=== PATIENT | male | born 1945 | race Hispanic/Latino ===

== ENCOUNTER 2021-05-19 12:36 | Inpatient (IN) | payer OTHER, MEDICARE ==
[~2021-05-19] VITALS: Ht 162.6 cm; Wt 77.1 kg
[2021-05-19 13:19] LABS: BASOPHILS % (AUTO) 0.2 % (0.0-5.0); EOSINOPHILS % (AUTO) 0.7 % (0.0-8.0); HEMATOCRIT 40.1 % (42-54); LYMPHOCYTES % (AUTO) 5.9 % (21.0-51.0); MEAN CORPUSCULAR HEMOGLOBIN 28.7 pg (27.0-33.0); MEAN CORPUSCULAR HGB CONC 32.7 g/dL (32.0-36.0); MEAN CORPUSCULAR VOLUME 87.9 fL (79-99); MONOCYTES % (AUTO) 14.7 % (3.0-13.0); NEUTROPHILS % (AUTO) 77.8 % (40.0-77.0); PLATELET COUNT (AUTO) 287 K/uL (130-400); RED BLOOD CELL COUNT(AUTO) 4.56 MIL/uL (4.50-6.20); RED CELL DISTRIBUTION WIDTH 14.4 % (11.0-15.5); WHITE BLOOD COUNT (AUTO) 16.4 K/uL (4.8-10.8)
[2021-05-19 13:30] LABS: CREATININE 1.2 mg/dL (0.5-1.5); POTASSIUM 3.9 mmol/L (3.5-5.1)
[2021-05-19 13:35] LABS: ALBUMIN 2.7 g/dL (3.5-5.0); BILIRUBIN,TOTAL 0.8 mg/dL (0.2-1.0)
[2021-05-19] MEDS ORDERED: ACETAMINOPHEN 500 MG TABLET ONE (14:52)
[2021-05-19 15:05] LABS: APPEARANCE,URINE Clear (CLEAR); BILIRUBIN,URINE Negative (NEGATIVE); COLOR,URINE Yellow (YELLOW); GLUCOSE, URINE (UA) Negative (NEGATIVE); KETONES,URINE Trace mg/dL (NEGATIVE); LEUKOCYTE ESTERASE ,URINE Small (NEGATIVE); NITRATE,URINE Negative (NEGATIVE); OCCULT BLOOD,URINE Small (NEGATIVE); PH,URINE 6.5 (5.0-8.0); PROTEIN,URINE POS 2+ mg/dL (NEGATIVE)
[2021-05-19 15:24] LABS: BACTERIA,URINE Few /HPF (None Seen); MUCUS,URINE Rare LPF (None Seen); SQUAMOUS EPITHELIAL CELL,UR Few /HPF (0-2)
[2021-05-19 15:48] LABS: INR 1.16 (0.85-1.15); PROTHROMBIN TIME 12.5 SEC (9.6-11.6)
[2021-05-19 15:50] LABS: PARTIAL THROMBOPLASTIN TIME 30.9 SEC (26.3-35.5)
[2021-05-19 16:14] VITALS: BP 135/74
[2021-05-19 18:31] VITALS: BP 145/74
[2021-05-19] MEDS ORDERED: CEFTRIAXONE 1G VIAL IVP ONE (19:00)
[2021-05-20] VITALS (7 sets, daily range): BP systolic 135–154; BP diastolic 70–89
[2021-05-20] MEDS ORDERED: ONDANSETRON 4MG INJ IV PRN
[2021-05-20] MEDS ORDERED: 0.9% NACL 250ML IVPB SCH
[2021-05-20] MEDS ORDERED: ACETAMINOPHEN 325 MG TAB PO PRN ×2
[2021-05-20] MEDS ORDERED: GUAIFENESIN-DM 200/20 MG 10 ML PO PRN
[2021-05-20] MEDS ORDERED: LACTULOSE 20 GM/30 ML UDCUP PO PRN
[2021-05-20] MEDS ORDERED: ZOLPIDEM TARTRATE 5 MG TAB PO PRN
[2021-05-20] MEDS ORDERED: MORPHINE 2 MG SYG IV PRN
[2021-05-20] MEDS ORDERED: MAG/ALUM/SIMETH 30 ML UDCUP PO PRN
[2021-05-20] MEDS ORDERED: NITROGLYCERIN 0.4 MG SL TAB SL PRN
[2021-05-20] MEDS ORDERED: LABETALOL 20MG VIAL IV PRN
[2021-05-20] MEDS ORDERED: DOXYCYCLINE 100MG IVPB (VIAL) IVPB SCH (00:30)
[2021-05-20] MEDS ORDERED: SULFAMETHOX-TMP DS 800/160 TAB PO SCH (00:30)
[2021-05-20] MEDS ORDERED: DOXYCYCLINE 100MG+NS 250ML 250 ML IV SCH (01:00)
[2021-05-20 08:39] LABS: MEAN CORPUSCULAR HEMOGLOBIN 28.9 pg (27.0-33.0); MEAN CORPUSCULAR HGB CONC 33.2 g/dL (32.0-36.0); MEAN CORPUSCULAR VOLUME 86.9 fL (79-99); RED BLOOD CELL COUNT(AUTO) 4.26 MIL/uL (4.50-6.20); RED CELL DISTRIBUTION WIDTH 14.4 % (11.0-15.5); WHITE BLOOD COUNT (AUTO) 17.2 K/uL (4.8-10.8)
[2021-05-20 08:46] LABS: CREATININE 1.1 mg/dL (0.5-1.5); POTASSIUM 3.7 mmol/L (3.5-5.1)
[2021-05-20 08:51] LABS: ALBUMIN 2.3 g/dL (3.5-5.0); BILIRUBIN,TOTAL 0.6 mg/dL (0.2-1.0)
[2021-05-20] MEDS ORDERED: VANCOMYCIN 1G VIAL IVPB ONE (09:00)
[2021-05-20] MEDS ORDERED: VANCOMYCIN PROTOCOL PER PHARMACY IV SCH (09:00)
[2021-05-20 09:05] LABS: TOTAL PROTEIN, SERUM 6.6 g/dL (6.0-8.3)
[2021-05-20] MEDS ORDERED: VANCOMYCIN 1.25GM/NS 250ML IVPB SCH ×2 (09:30)
[2021-05-20] MEDS ORDERED: LOSARTAN 50 MG TABLET ONE (09:55)
[2021-05-20] MEDS: LOSARTAN 100 MG TABLET PO SCH (10:05)
[2021-05-20] MEDS: HYDROCHLOROTHIAZIDE 25 MG TABLET PO SCH (10:05)
[2021-05-20] MEDS: ASPIRIN 81 MG EC TAB PO SCH (10:05)
[2021-05-20] MEDS: FAMOTIDINE 20MG VIAL IV SCH (10:05)
[2021-05-20] MEDS: ENOXAPARIN SODIUM 30 MG/0.3 ML SQ SCH (10:06)
[2021-05-20] MEDS: MEROPENEM 1 GM VIAL IVP SCH ×2 (10:12→16:45)
[2021-05-20] MEDS: ATORVASTATIN 40 MG TABLET PO SCH (21:02)
[2021-05-21] VITALS (8 sets, daily range): BP systolic 127–143; BP diastolic 77–85
[2021-05-21] MEDS: MEROPENEM 1 GM VIAL IVP SCH ×3 (01:11→17:22)
[2021-05-21 06:27] LABS: BASOPHILS % (AUTO) 0.2 % (0.0-5.0); EOSINOPHILS % (AUTO) 0.4 % (0.0-8.0); LYMPHOCYTES % (AUTO) 5.6 % (21.0-51.0); MEAN CORPUSCULAR HEMOGLOBIN 28.6 pg (27.0-33.0); MEAN CORPUSCULAR HGB CONC 33.6 g/dL (32.0-36.0); MEAN CORPUSCULAR VOLUME 85.1 fL (79-99); MONOCYTES % (AUTO) 12.8 % (3.0-13.0); NEUTROPHILS % (AUTO) 79.2 % (40.0-77.0); PLATELET COUNT (AUTO) 343 K/uL (130-400); RED BLOOD CELL COUNT(AUTO) 4.23 MIL/uL (4.50-6.20); RED CELL DISTRIBUTION WIDTH 14.1 % (11.0-15.5); WHITE BLOOD COUNT (AUTO) 13.6 K/uL (4.8-10.8)
[2021-05-21 06:39] LABS: CREATININE 1.2 mg/dL (0.5-1.5); POTASSIUM 3.3 mmol/L (3.5-5.1)
[2021-05-21] MEDS ORDERED: LOSARTAN 50 MG TABLET ONE (08:20)
[2021-05-21] MEDS: FAMOTIDINE 20MG VIAL IV SCH (08:44)
[2021-05-21] MEDS: LOSARTAN 100 MG TABLET PO SCH (08:44)
[2021-05-21] MEDS: ASPIRIN 81 MG EC TAB PO SCH (08:44)
[2021-05-21] MEDS: HYDROCHLOROTHIAZIDE 25 MG TABLET PO SCH (08:44)
[2021-05-21] MEDS: ENOXAPARIN SODIUM 30 MG/0.3 ML SQ SCH (08:45)
[2021-05-21] MEDS: 0.9%NACL 100ML 100 ML IV SCH ×2 (10:04→21:01)
[2021-05-21] MEDS: VANCOMYCIN 500MG+NS 100ML IVPB IV SCH ×2 (10:04→21:00)
[2021-05-21] MEDS ORDERED: LIDOCAINE HCL-MPF 1% 2ML VIAL IV PRN ×2 (12:00)
[2021-05-21] MEDS ORDERED: POTASSIUM CHLORIDE 20MEQ/100ML 100 ML IV PRN ×2 (12:00)
[2021-05-21] MEDS ORDERED: KCL 20 MEQ ERTAB PO PRN (12:00)
[2021-05-21] MEDS ORDERED: POTASSIUM CHLORIDE 10% ELIXIR 20 MEQ/15 ML UDCUP PO PRN (12:00)
[2021-05-21] MEDS ORDERED: ONDANSETRON 4MG INJ IVP PRN (12:00)
[2021-05-21] MEDS ORDERED: 0.9%NACL 50ML 50 ML IV ONE (17:20)
[2021-05-21] MEDS: ATORVASTATIN 40 MG TABLET PO SCH (21:01)
[2021-05-22 01:26] VITALS: BP 119/83
[2021-05-22] MEDS: MEROPENEM 1 GM VIAL IVP SCH ×2 (02:14→11:15)
[2021-05-22 05:04] VITALS: BP 123/72
[2021-05-22 06:02] LABS: HEMATOCRIT 40.7 % (42-54); MEAN CORPUSCULAR HEMOGLOBIN 28.4 pg (27.0-33.0); MEAN CORPUSCULAR HGB CONC 33.2 g/dL (32.0-36.0); MEAN CORPUSCULAR VOLUME 85.7 fL (79-99); RED BLOOD CELL COUNT(AUTO) 4.75 MIL/uL (4.50-6.20); RED CELL DISTRIBUTION WIDTH 13.9 % (11.0-15.5); WHITE BLOOD COUNT (AUTO) 10.4 K/uL (4.8-10.8)
[2021-05-22 06:11] LABS: CREATININE 1.2 mg/dL (0.5-1.5); POTASSIUM 4.3 mmol/L (3.5-5.1)
[2021-05-22 07:55] VITALS: BP 134/74
[2021-05-22 08:15] VITALS: BP 136/91
[2021-05-22] MEDS: ASPIRIN 81 MG EC TAB PO SCH (11:15)
[2021-05-22] MEDS: FAMOTIDINE 20MG VIAL IV SCH (11:15)
[2021-05-22] MEDS: LOSARTAN 100 MG TABLET PO SCH (11:15)
[2021-05-22] MEDS: VANCOMYCIN 500MG+NS 100ML IVPB IV SCH (11:16)
[2021-05-22] MEDS: ENOXAPARIN SODIUM 30 MG/0.3 ML SQ SCH (11:18)
[2021-05-22 12:00] VITALS: BP 118/78
[2021-05-22] MEDS ORDERED: AMOX-429 PO (14:55)
[2021-05-22 16:00] VITALS: BP 128/84
== END 2021-05-22 19:20 | disposition home or self-care (01) | DRG 728 ==
LOC: EDH 12:36 → EDHIP 19:16 → OBSVTOIN 19:16 → 3BH 05-22 08:37
PROVIDERS: ADMIT Internal Medicine Critical Care Medicine; ATTEND Internal Medicine Critical Care Medicine
DX: N45.3 Epididymo-orchitis (principal); N39.0 Urinary tract infection, site not specified; E78.00 Pure hypercholesterolemia, unspecified; I11.9 Hypertensive heart disease without heart failure; N43.3 Hydrocele, unspecified; K80.20 Calculus of gallbladder without cholecystitis without obstruction; K57.30 Diverticulosis of large intestine without perforation or abscess without bleeding; N40.0 Benign prostatic hyperplasia without lower urinary tract symptoms; K44.9 Diaphragmatic hernia without obstruction or gangrene; K29.70 Gastritis, unspecified, without bleeding; K40.20 Bilateral inguinal hernia, without obstruction or gangrene, not specified as recurrent; Z20.822 Contact with and (suspected) exposure to COVID-19; N49.2 Inflammatory disorders of scrotum
CPT/HCPCS: 36415; 71045; 74176; 76870; 80048; 80053; 80202; 81001; 82550; 83605; 83690; 84484; 85025; 85027; 85610; 85730; 87040; 87635; 87804; 93005; C9803; G0378; J0696; J1650; J2185; J2405; J3370; J3490; J7050

== ENCOUNTER 2021-08-31 12:29 | Inpatient (IN) | payer OTHER, MEDICARE ==
[~2021-08-31] VITALS: Ht 162.6 cm; Wt 72.3 kg
[~2021-08-31 12:29] MED LIST: AMOX-429 PO
[2021-08-31 15:04] VITALS: BP 148/85
[2021-08-31 16:44] LABS: BASOPHILS % (AUTO) 0.2 % (0.0-5.0); EOSINOPHILS % (AUTO) 0.2 % (0.0-8.0); HEMATOCRIT 39.4 % (42-54); MEAN CORPUSCULAR HEMOGLOBIN 27.7 pg (27.0-33.0); MEAN CORPUSCULAR HGB CONC 31.7 g/dL (32.0-36.0); MEAN CORPUSCULAR VOLUME 87.2 fL (79-99); MONOCYTES % (AUTO) 4.9 % (3.0-13.0); NEUTROPHILS % (AUTO) 92.2 % (40.0-77.0); PLATELET COUNT (AUTO) 297 K/uL (130-400); RED BLOOD CELL COUNT(AUTO) 4.52 MIL/uL (4.50-6.20); RED CELL DISTRIBUTION WIDTH 14.3 % (11.0-15.5); WHITE BLOOD COUNT (AUTO) 12.8 K/uL (4.8-10.8)
[2021-08-31] MEDS: LACTATED RINGERS 1000ML 1,000 ML IV SCH (16:46)
[2021-08-31] MEDS: ZOSYN 3.375GM +NS 50ML IV SCH (16:50)
[2021-08-31 16:59] LABS: INR 1.3 (0.85-1.15); PROTHROMBIN TIME 13.8 SEC (9.6-11.6)
[2021-08-31] MEDS ORDERED: ACETAMINOPHEN 325 MG TAB PO PRN (17:00)
[2021-08-31] MEDS ORDERED: ACETAMINOPHEN 650 MG SUPPOSITORY RC PRN (17:00)
[2021-08-31] MEDS ORDERED: ONDANSETRON 4MG INJ IVP PRN (17:00)
[2021-08-31] MEDS ORDERED: HYDROMORPHONE 0.5 MG SYG (0.5MG/0.5ML) IVP PRN (17:00)
[2021-08-31 17:03] LABS: ALBUMIN 3.1 g/dL (3.5-5.0); BILIRUBIN,TOTAL 4.1 mg/dL (0.2-1.0); CREATININE 1.1 mg/dL (0.5-1.5); POTASSIUM 3.3 mmol/L (3.5-5.1); TOTAL PROTEIN, SERUM 6.5 g/dL (6.0-8.3)
[2021-08-31 20:00] VITALS: BP 149/83
[2021-08-31] MEDS: POTASSIUM CHLORIDE 20MEQ/100ML 100 ML IV PRN (21:03)
[2021-09-01] VITALS (22 sets, daily range): BP systolic 107–149; BP diastolic 51–87
[2021-09-01] MEDS: POTASSIUM CHLORIDE 20MEQ/100ML 100 ML IV PRN (00:09)
[2021-09-01] MEDS: LACTATED RINGERS 1000ML 1,000 ML IV SCH ×4 (00:10→23:55)
[2021-09-01] MEDS: ZOSYN 3.375GM +NS 50ML IV SCH ×3 (01:41→19:29)
[2021-09-01 04:22] LABS: BASOPHILS % (AUTO) 0.2 % (0.0-5.0); EOSINOPHILS % (AUTO) 0.6 % (0.0-8.0); HEMATOCRIT 38.3 % (42-54); LYMPHOCYTES % (AUTO) 3.8 % (21.0-51.0); MEAN CORPUSCULAR HEMOGLOBIN 27.4 pg (27.0-33.0); MEAN CORPUSCULAR HGB CONC 30.8 g/dL (32.0-36.0); MEAN CORPUSCULAR VOLUME 89.1 fL (79-99); MONOCYTES % (AUTO) 6.9 % (3.0-13.0); NEUTROPHILS % (AUTO) 87.9 % (40.0-77.0); PLATELET COUNT (AUTO) 263 K/uL (130-400); RED CELL DISTRIBUTION WIDTH 14.4 % (11.0-15.5); WHITE BLOOD COUNT (AUTO) 8.5 K/uL (4.8-10.8)
[2021-09-01 04:39] LABS: HEMOGLOBIN A1C 5.9 % (4.0-6.0)
[2021-09-01 04:54] LABS: ALBUMIN 2.7 g/dL (3.5-5.0); BILIRUBIN,TOTAL 4.1 mg/dL (0.2-1.0); CREATININE 1.1 mg/dL (0.5-1.5); POTASSIUM 3.8 mmol/L (3.5-5.1); THYROID STIMULATING HORMONE 2.09 uIU/mL (0.36-3.74)
[2021-09-01 04:56] LABS: B-TYPE NATRIURETIC PEPTIDE 81 pg/mL (0-100)
[2021-09-01] MEDS ORDERED: LIDOCAINE PF 100MG/5ML (2%) SYRINGE 5ML ONE (10:26)
[2021-09-01] MEDS ORDERED: PROPOFOL 10 MG/ML 20ML VIAL IV ONE (10:26)
[2021-09-01] MEDS ORDERED: ATOR40TA69 PO (18:25)
[2021-09-01] MEDS ORDERED: HYDR25TA PO (18:25)
[2021-09-01] MEDS ORDERED: METO10TA3 PO (18:25)
[2021-09-01] MEDS ORDERED: MYCO500T5 PO (18:25)
[2021-09-01] MEDS ORDERED: LOSA100T58 PO (18:25)
[2021-09-02] VITALS (7 sets, daily range): BP systolic 133–174; BP diastolic 67–90
[2021-09-02] MEDS: ZOSYN 3.375GM +NS 50ML IV SCH ×3 (02:43→18:37)
[2021-09-02 06:47] LABS: ALBUMIN 2.4 g/dL (3.5-5.0); BILIRUBIN,TOTAL 1.4 mg/dL (0.2-1.0); POTASSIUM 3.9 mmol/L (3.5-5.1); TOTAL PROTEIN, SERUM 5.6 g/dL (6.0-8.3)
[2021-09-02] MEDS: LACTATED RINGERS 1000ML 1,000 ML IV SCH ×2 (08:23→18:37)
[2021-09-03 00:44] VITALS: BP 142/73
[2021-09-03] MEDS: ZOSYN 3.375GM +NS 50ML IV SCH ×3 (01:55→16:27)
[2021-09-03] MEDS: LACTATED RINGERS 1000ML 1,000 ML IV SCH (01:55)
[2021-09-03 04:44] VITALS: BP 130/69
[2021-09-03 05:33] LABS: BASOPHILS % (AUTO) 0.4 % (0.0-5.0); EOSINOPHILS % (AUTO) 0.9 % (0.0-8.0); HEMATOCRIT 37.5 % (42-54); LYMPHOCYTES % (AUTO) 20.9 % (21.0-51.0); MEAN CORPUSCULAR HEMOGLOBIN 27.2 pg (27.0-33.0); MEAN CORPUSCULAR HGB CONC 31.2 g/dL (32.0-36.0); MEAN CORPUSCULAR VOLUME 87.2 fL (79-99); MONOCYTES % (AUTO) 16.5 % (3.0-13.0); NEUTROPHILS % (AUTO) 60.7 % (40.0-77.0); PLATELET COUNT (AUTO) 230 K/uL (130-400); WHITE BLOOD COUNT (AUTO) 5.4 K/uL (4.8-10.8)
[2021-09-03 08:00] VITALS: BP 146/84
[2021-09-03] MEDS: LOSARTAN 100 MG TABLET PO SCH (08:24)
[2021-09-03] MEDS: HYDROCHLOROTHIAZIDE 25 MG TABLET PO SCH (08:24)
[2021-09-03 12:00] VITALS: BP 158/92
[2021-09-03 16:00] VITALS: BP 153/91
[2021-09-03 20:24] VITALS: BP 161/89
[2021-09-04 00:24] VITALS: BP 133/83
[2021-09-04] MEDS: LACTATED RINGERS 1000ML 1,000 ML IV SCH ×3 (01:00→17:37)
[2021-09-04] MEDS: ZOSYN 3.375GM +NS 50ML IV SCH ×3 (01:07→17:51)
[2021-09-04 04:24] VITALS: BP 133/81
[2021-09-04 06:41] LABS: HEMATOCRIT 38.1 % (42-54); MEAN CORPUSCULAR HEMOGLOBIN 27.5 pg (27.0-33.0); MEAN CORPUSCULAR HGB CONC 32.8 g/dL (32.0-36.0); MEAN CORPUSCULAR VOLUME 83.7 fL (79-99); RED BLOOD CELL COUNT(AUTO) 4.55 MIL/uL (4.50-6.20); RED CELL DISTRIBUTION WIDTH 13.8 % (11.0-15.5); WHITE BLOOD COUNT (AUTO) 6.5 K/uL (4.8-10.8)
[2021-09-04 06:58] LABS: ALBUMIN 2.6 g/dL (3.5-5.0); BILIRUBIN,TOTAL 0.9 mg/dL (0.2-1.0); CREATININE 1.3 mg/dL (0.5-1.5); POTASSIUM 3.5 mmol/L (3.5-5.1); TOTAL PROTEIN, SERUM 6.3 g/dL (6.0-8.3)
[2021-09-04 08:00] VITALS: BP 118/83
[2021-09-04] MEDS: LOSARTAN 100 MG TABLET PO SCH (09:31)
[2021-09-04] MEDS: HYDROCHLOROTHIAZIDE 25 MG TABLET PO SCH (09:31)
[2021-09-04 12:00] VITALS: BP 133/80
[2021-09-04] MEDS ORDERED: PANT40TA54 PO (12:02)
[2021-09-04 16:00] VITALS: BP 145/88
[2021-09-04] MEDS: PANTOPRAZOLE 40 MG TAB DR PO SCH (17:51)
[2021-09-04] MEDS: LIDOCAINE HCL-MPF 1% 2ML VIAL IV PRN (17:51)
[2021-09-04] MEDS: POTASSIUM CHLORIDE 20MEQ/100ML 100 ML IV PRN (17:52)
[2021-09-04 20:00] VITALS: BP 148/89
[2021-09-05] VITALS: BP 131/82
[2021-09-05] MEDS: ZOSYN 3.375GM +NS 50ML IV SCH ×2 (02:24→10:47)
[2021-09-05] MEDS: LACTATED RINGERS 1000ML 1,000 ML IV SCH ×2 (02:25→10:48)
[2021-09-05 03:41] LABS: HEMATOCRIT 38.3 % (42-54); MEAN CORPUSCULAR HEMOGLOBIN 27.1 pg (27.0-33.0); MEAN CORPUSCULAR HGB CONC 31.9 g/dL (32.0-36.0); MEAN CORPUSCULAR VOLUME 84.9 fL (79-99); RED BLOOD CELL COUNT(AUTO) 4.51 MIL/uL (4.50-6.20); RED CELL DISTRIBUTION WIDTH 13.5 % (11.0-15.5); WHITE BLOOD COUNT (AUTO) 6.5 K/uL (4.8-10.8)
[2021-09-05 03:53] LABS: ALBUMIN 2.8 g/dL (3.5-5.0); BILIRUBIN,TOTAL 0.8 mg/dL (0.2-1.0); CREATININE 1.4 mg/dL (0.5-1.5); POTASSIUM 3.3 mmol/L (3.5-5.1); TOTAL PROTEIN, SERUM 6.5 g/dL (6.0-8.3)
[2021-09-05 04:00] VITALS: BP 138/87
[2021-09-05 08:14] VITALS: BP 143/79
[2021-09-05] MEDS: LOSARTAN 100 MG TABLET PO SCH (10:47)
[2021-09-05] MEDS: HYDROCHLOROTHIAZIDE 25 MG TABLET PO SCH (10:47)
[2021-09-05] MEDS: PANTOPRAZOLE 40 MG TAB DR PO SCH (10:47)
[2021-09-05] MEDS: LIDOCAINE HCL-MPF 1% 2ML VIAL IV PRN (10:48)
[2021-09-05] MEDS: POTASSIUM CHLORIDE 20MEQ/100ML 100 ML IV PRN (10:48)
[2021-09-05 12:00] VITALS: BP 122/70
[2021-09-05] MEDS ORDERED: KCL 20 MEQ ERTAB PO SCH (12:05)
== END 2021-09-05 14:00 | disposition home or self-care (01) | DRG 375 ==
LOC: 3DH 14:06
PROVIDERS: ADMIT Internal Medicine Critical Care Medicine; ATTEND Internal Medicine Critical Care Medicine
PROC: 0DB68ZX Excision of Stomach, Via Natural or Artificial Opening Endoscopic, Diagnostic (ICD-10-PCS; principal; 2021-09-01)
DX: D49.0 Neoplasm of unspecified behavior of digestive system (principal); K22.10 Ulcer of esophagus without bleeding; E78.5 Hyperlipidemia, unspecified; I11.9 Hypertensive heart disease without heart failure; K29.70 Gastritis, unspecified, without bleeding; R93.3 Abnormal findings on diagnostic imaging of other parts of digestive tract; I25.10 Atherosclerotic heart disease of native coronary artery without angina pectoris; K31.9 Disease of stomach and duodenum, unspecified; Z95.1 Presence of aortocoronary bypass graft; Z79.899 Other long term (current) drug therapy; K80.20 Calculus of gallbladder without cholecystitis without obstruction
CPT/HCPCS: 36415; 43239; 71045; 76705; 78227; 80053; 82150; 82378; 83036; 83690; 83735; 83880; 84443; 85025; 85027; 85610; 86850; 86900; 86901; A4606; A9537; G0378; J1170; J2001; J2543; J2704; J3480; J3490; J7120

== ENCOUNTER → 2021-09-27 | Outpatient (CLI) | payer OTHER, MEDICARE ==
[~2021-09-27] MED LIST changes: -AMOX-429 PO; +HYDR25TA PO; +IOHEXOL-350 75 ML VIAL IV ONE; +LOSA100T58 PO; +METO10TA3 PO; +PANT40TA54 PO
== END | disposition home or self-care (01) ==
LOC: RAH 07:46
PROVIDERS: ATTEND Internal Medicine Gastroenterology
DX: K57.30 Diverticulosis of large intestine without perforation or abscess without bleeding (principal); K80.20 Calculus of gallbladder without cholecystitis without obstruction; K40.90 Unilateral inguinal hernia, without obstruction or gangrene, not specified as recurrent; N32.3 Diverticulum of bladder; C49.A0 Gastrointestinal stromal tumor, unspecified site
CPT/HCPCS: 74178; Q9967

== ENCOUNTER 2022-01-08 05:58 | Inpatient (IN) | payer OTHER, MEDICARE ==
[2022-01-03 13:13] LABS: BASOPHILS % (AUTO) 0.3 % (0.0-5.0); EOSINOPHILS % (AUTO) 0.9 % (0.0-8.0); LYMPHOCYTES % (AUTO) 21.9 % (21.0-51.0); MEAN CORPUSCULAR HEMOGLOBIN 27.1 pg (27.0-33.0); MEAN CORPUSCULAR VOLUME 87.3 fL (79-99); MONOCYTES % (AUTO) 8.4 % (3.0-13.0); NEUTROPHILS % (AUTO) 68.1 % (40.0-77.0); PLATELET COUNT (AUTO) 373 K/uL (130-400); RED BLOOD CELL COUNT(AUTO) 3.32 MIL/uL (4.50-6.20); RED CELL DISTRIBUTION WIDTH 16.2 % (11.0-15.5); WHITE BLOOD COUNT (AUTO) 7.8 K/uL (4.8-10.8)
[2022-01-03 13:40] LABS: BILIRUBIN,TOTAL 0.5 mg/dL (0.2-1.0); CREATININE 0.9 mg/dL (0.5-1.5); POTASSIUM 4.1 mmol/L (3.5-5.1); TOTAL PROTEIN, SERUM 6.2 g/dL (6.0-8.3)
[2022-01-07 12:45] VITALS: BP 120/74
[2022-01-08] VITALS (21 sets, daily range): BP systolic 113–153; BP diastolic 44–78
[~2022-01-08] VITALS: Ht 165.1 cm; Wt 69.7 kg
[~2022-01-08 05:58] MED LIST changes: +ATOR-2 PO; +DUTA0.5C37 PO; -HYDR25TA PO; -IOHEXOL-350 75 ML VIAL IV ONE; +MYCO500T5 PO; +NAPR-1023 PO; +OMEP40CA21 PO; -PANT40TA54 PO; +TAMS-1 PO
[2022-01-08] MEDS ORDERED: LACTATED RINGERS 1000ML 1,000 ML IV ONE (06:10)
[2022-01-08] MEDS ORDERED: CEFAZOLIN SODIUM 1 GM VIAL ONE (06:27)
[2022-01-08] MEDS ORDERED: PHARMACY COMMUNICATION MISC SCH (06:30)
[2022-01-08] MEDS ORDERED: BUPIVACAINE/PF 0.25% 30ML VIAL IJ ONE ×2 (06:38→13:15)
[2022-01-08] MEDS ORDERED: METRONIDAZOLE 500MG/100ML BAG 100 ML IVPB SCH (07:00)
[2022-01-08] MEDS ORDERED: CEFAZOLIN SODIUM 1 GM VIAL IVP SCH (07:00)
[2022-01-08] MEDS ORDERED: FAMOTIDINE 20MG VIAL IV ONE (10:24)
[2022-01-08] MEDS ORDERED: PROPOFOL 10 MG/ML 20ML VIAL IV ONE ×2 (10:27→11:56)
[2022-01-08] MEDS ORDERED: ROCURONIUM BROMIDE 10MG/1ML 5ML VL ONE ×2 (10:27→12:34)
[2022-01-08] MEDS ORDERED: FENTANYL CITRATE PF 50 MCG/1 ML 2ML VIAL ONE ×2 (10:27→12:38)
[2022-01-08] MEDS ORDERED: PHENYLEPHRINE HCL 10 MG/ML 1ML VIAL IV ONE (10:42)
[2022-01-08] MEDS ORDERED: GLYCOPYRROLATE 1 MG/5 ML SYRINGE ONE (10:45)
[2022-01-08] MEDS ORDERED: CEFAZOLIN SODIUM 2 GM VIAL IV ONE (11:04)
[2022-01-08] MEDS ORDERED: ESMOLOL HCL 10 MG/ML 10 ML VIAL ONE (11:53)
[2022-01-08] MEDS ORDERED: ONDANSETRON 4MG INJ ONE (11:56)
[2022-01-08] MEDS ORDERED: MEPERIDINE-PF 25 MG/ML SYG ONE ×2 (11:58→13:55)
[2022-01-08] MEDS ORDERED: NEOSTIGMINE 5MG/5ML SYR IV ONE (13:02)
[2022-01-08] MEDS ORDERED: ONDANSETRON 4MG INJ IVP PRN (13:30)
[2022-01-08] MEDS: LACTATED RINGERS 1000ML 1,000 ML IV SCH (13:30)
[2022-01-08] MEDS ORDERED: MORPHINE 4 MG SYG IVP PRN (14:00)
[2022-01-08] MEDS ORDERED: KETOROLAC 15MG/ML VIAL (15MG/ML) ONE (14:40)
[2022-01-08] MEDS ORDERED: NAPROXEN 500 MG TABLET PO PRN (19:00)
[2022-01-08] MEDS ORDERED: ENOXAPARIN SODIUM 30 MG/0.3 ML SQ SCH (20:00)
[2022-01-08] MEDS ORDERED: TAMSULOSIN HCL 0.4 MG CAP.ER.24H PO SCH (21:00)
[2022-01-08] MEDS ORDERED: ATORVASTATIN 40 MG TABLET PO SCH (21:00)
[2022-01-08] MEDS: FAMOTIDINE 20MG VIAL IV SCH (21:32)
[2022-01-09] MEDS: LACTATED RINGERS 1000ML 1,000 ML IV SCH ×2 (02:20→12:38)
[2022-01-09 03:24] VITALS: BP 137/72
[2022-01-09] MEDS: HYDROCODONE/ACETAMINOPHEN 7.5/325 MG 15 ML UDCUP PO PRN ×3 (06:39→13:46)
[2022-01-09] MEDS: METOCLOPRAMIDE 10 MG TABLET PO SCH ×2 (06:39→16:30)
[2022-01-09 07:35] VITALS: BP 131/70
[2022-01-09] MEDS ORDERED: LOSARTAN 100 MG TABLET PO SCH (09:00)
[2022-01-09] MEDS ORDERED: MYCOPHENOLATE MOFETIL 250 MG CAPSULE PO SCH (09:00)
[2022-01-09] MEDS ORDERED: (Dutasteride 0.5 MG) PO SCH (09:00)
[2022-01-09] MEDS ORDERED: PANTOPRAZOLE 40 MG TAB DR PO SCH (09:00)
[2022-01-09] MEDS: FAMOTIDINE 20MG VIAL IV SCH (09:52)
[2022-01-09 10:55] VITALS: BP 125/71
[2022-01-09 15:10] VITALS: BP 138/69
== END 2022-01-09 17:55 | disposition home or self-care (01) | DRG 328 ==
LOC: DAHIP 05:58 → EDSTATUS 11:26 → 4CH 15:15
PROVIDERS: ADMIT Surgery; ATTEND Surgery
PROC: 0DB64ZZ Excision of Stomach, Percutaneous Endoscopic Approach (ICD-10-PCS; principal; 2022-01-08 10:34)
PROC: 0BQT4ZZ Repair Diaphragm, Percutaneous Endoscopic Approach (ICD-10-PCS; 2022-01-08 10:34)
DX: C49.A2 Gastrointestinal stromal tumor of stomach (principal); I10 Essential (primary) hypertension; E78.5 Hyperlipidemia, unspecified; I25.10 Atherosclerotic heart disease of native coronary artery without angina pectoris; K44.9 Diaphragmatic hernia without obstruction or gangrene; Z20.822 Contact with and (suspected) exposure to COVID-19
CPT/HCPCS: 36415; 43235; 80053; 85025; 86850; 86900; 86901; 87635; 93005; 97039; A6260; G0378; J0690; J1650; J1885; J2175; J2270; J2370; J2405; J2704; J2710; J3010; J3490; J7030; J7120; J7517

== ENCOUNTER → 2022-11-05 | Outpatient (CLI) | payer OTHER, MEDICARE ==
[2022-11-05 14:22] LABS: ALBUMIN 2.6 g/dL (3.5-5.0); MAGNESIUM 1.9 mg/dL (1.80-2.40); POTASSIUM 3.2 mmol/L (3.5-5.1); TOTAL PROTEIN, SERUM 5.6 g/dL (6.0-8.3)
== END | disposition home or self-care (01) ==
LOC: LAB 11:23
PROVIDERS: ATTEND Internal Medicine Cardiovascular Disease
DX: I10 Essential (primary) hypertension (principal); E78.5 Hyperlipidemia, unspecified
CPT/HCPCS: 36415; 80053; 80061; 83735